=== PATIENT | female | born 2000 | race Caucasian/White ===

== ENCOUNTER → 2024-01-23 | Outpatient (CLI) | payer OTHER | END | disposition home or self-care (01) | LOC: RAD 15:43 | PROVIDERS: ATTEND Nurse Practitioner | DX: M25.542 Pain in joints of left hand (principal) | CPT/HCPCS: 73130-LT ==

== ENCOUNTER 2025-07-12 11:42 | Emergency (ER) | payer SELFPAY ==
[~2025-07-12] VITALS: Ht 175.3 cm; Wt 68.0 kg
[2025-07-12 11:51] VITALS: BP 121/75; PULSE 113; RESP 18; TEMP 98.6; O2SAT 93
[2025-07-12] MEDS ORDERED: DUONEB 0.5-3(2.5) MG/3 ML IH ONE (12:01)
[2025-07-12] MEDS ORDERED: TYLENOL ONE (12:03)
[2025-07-12] MEDS ORDERED: WATER 20 ML ONE (12:03)
[2025-07-12] MEDS ORDERED: SOLU-MEDROL ONE (12:03)
[2025-07-12] MEDS: TYLENOL PO STA (12:07)
[2025-07-12] MEDS: SOLU-MEDROL IM STA (12:07)
[2025-07-12] MEDS: DUONEB 0.5-3(2.5) MG/3 ML IH STA (12:07)
[2025-07-12 12:14] VITALS: PULSE 95; O2SAT 93
[2025-07-12 12:15] VITALS: PULSE 95; O2SAT 99
[2025-07-12 12:51] LABS: HUMAN RHINOVIRUS/ENTEROVIRUS DETECTED (NotDetected)
[2025-07-12] MEDS ORDERED: PRED20TA PO (13:05)
[2025-07-12] MEDS ORDERED: IPRA3AMP25 IH (13:05)
[2025-07-12 13:11] VITALS: BP 118/62; PULSE 102; RESP 18; O2SAT 96
== END 2025-07-12 13:08 | disposition home or self-care (01) ==
LOC: ER 11:42
DX: J20.6 Acute bronchitis due to rhinovirus (principal); Z20.822 Contact with and (suspected) exposure to COVID-19
CPT/HCPCS: 99283; 96372; 87632; 94640; J2919; A4216; J3490; J2930